=== PATIENT | female | born 1990 | race Caucasian/White ===

== ENCOUNTER → 2017-08-14 | Outpatient (CLI) | payer BC | LOC: MC.RAD 09:18 | DX: N63.11 Unspecified lump in the right breast, upper outer quadrant (principal) ==

== ENCOUNTER 2021-08-03 10:29 | Inpatient (IN) | payer BC ==
[~2021-08-03] VITALS: Ht 162.6 cm; Wt 83.2 kg
[2021-08-06] VITALS (40 sets, daily range): BP systolic 104–144; BP diastolic 58–86; PULSE 71–137; TEMP 97.5–98.7
[2021-08-06] MEDS ORDERED: PRENATAL MVI (06:48)
[2021-08-06 07:23] LABS: BASO % 0.3 % (0.0-2.0); EOS # 0.1 K/mm3 (0.0-0.7); EOS % 0.4 % (0.0-4.0); GRAN # 9.1 K/mm3 (1.4-6.5); HEMOGLOBIN 12.4 g/dl (12.5-16.0); LYMPH # 1.6 K/mm3 (1.2-3.4); LYMPH % 13.7 % (20.0-51.0); MEAN CELL VOLUME 89 fl (80.0-100.0); MEAN CORPUSCULAR HEMOGLOBIN 31 pg (27-31); MEAN CORPUSCULAR HGB CONC 34 g/dl (33.0-37.0); MONO # 0.9 K/mm3 (0.1-0.6); MONO % 7.2 % (1.7-9.3); PLATELET COUNT 208 K/mm3 (130-400); RED BLOOD COUNT 4.07 M/mm3 (4.10-5.30); REDCELL DISTRIBUTION WIDTH-CV 12.7 % (11.5-14.5)
[2021-08-06 07:26] LABS: HEMATOCRIT 36.2 % (37.0-47.0)
--- NOTE | 2021-08-06 08:13 | NUR ---
0620 - PATIENT AMBULATORY TO LDR6 WITH SPOUSE. PATIENT CHANGES INTO GOWN AND IS PLACED ON MONITOR AT 0628. PATIENT REPORTS INCREASED VAGINAL DISCHARGE/LEAKING OF FLUID. PATIENT ALSO REPORTS CONTRACTIONS STARTING THIS MORNING AT 0330. VSS. 0630 - CONSENTS REVIEWED AND SIGNED. 0635 - IV PLACED IN LEFT HAND. LABS DRAWN ORDERED. 0715 - LR INFUSING. AMNI TEST NEGATIVE. SVE 3.5/80/-3. 0719 - PITOCIN GTT INITIATED AT 2MILIUNITS/HR. PLAN OF CARE DISCUSSED. PATIENT RESTING. CALL LIGHT WITHIN REACH. CARE ONGOING.
--- NOTE | 2021-08-06 09:10 | NUR ---
0910 - MD HENNY AT BEDSIDE. SVE -/-2. PLAN OF CARE DISCUSSED. 0911 - AROM BY MD HENNY. PITOCIN GTT CONTINUES. VSS. CARE ONGOING.
--- NOTE | 2021-08-06 09:15 | NUR ---
0915 - PATIENT REQUESTING EPIDURAL. 0916 - ELVIA PADILLA NOTIFIED FOR ANESTHESIA. 0935 - LR BOLUS INITIATED. 0940 - ELVIA PADILLA AT BEDSIDE FOR EPIDURAL PLACEMENT. PLAN OF CARE DISCUSSED. 0944 - SINGLE SHOT GIVEN BY BOLT CUTTER. 0950 - PATIENT PLACED IN LEFT WEDGE POSITION. VSS. PITOCIN GTT CONTINUES. RN REMAINS AT BEDSIDE. CARE ONGOING.
--- NOTE | 2021-08-06 13:00 | NUR ---
EARLY AND LATE DECELS NOTED. PATIENT REPOSITIONED. CARE ONGOING.
--- NOTE | 2021-08-06 13:06 | NUR ---
1306 - PATIENT COMPLETE AND +2. MD HENNY ON UNIT AND NOTIFIED. 1316 - PATIENT INSTRUCTED ON PUSHING WITH CONTRACTIONS. PATIENT PUSHING WITH CONTRACTIONS. MOVES VERTEX WELL. 1320 - MD HENNY AT BEDSIDE TO EVALUATE PUSHING EFFORTS. INTERMITTENT LATE AND VARIABLE DECELS. PATIENT WEDGED LEFT. CONTINUES TO PUSH WITH CONTRACTIONS.
--- NOTE | 2021-08-06 13:54 | NUR ---
1354Dr. Roles at bedside for delivery. Patient continues to push with contractions with Dr. Valverde at bedside. 1357Spontaneous vaginal delivery of viable male infant. To mother's chest where dried and stimulated by nursery RN. Pitocin paused. 1359- Cord clamped x2 and cut by father of . Care of assumed by Rula Zavala RN. 1402 Spontaneous and intact delivery of placenta. Pitocin to 333ml/hr per protocol. Third degree perineal lac repaired by Dr. Valverde. Fundus firm, midline, and bleeding mininmal. Yudy care provided, pads changed, and ice pack to perineum. Plan of care and safety precautions reviewed. See doctor dictation, anesthesia record, and nurses notes.
--- NOTE | 2021-08-06 16:15 | NUR ---
Report to Maria Trotter LPN and Vijaya MATTHEWS, who assume care of pt.
--- NOTE | 2021-08-06 18:13 | NUR ---
PT HELPED TO BATHROOM, VOIDED 500CC PERICARE GIVEN WITH EDUCATION. PT HELPED TO WHEELCHAIR AND MOVED TO ROOM WITH ALL BELONGINGS AND AND BABY
[2021-08-07 00:30] VITALS: BP 113/79; PULSE 94; TEMP 97.4
[2021-08-07 05:45] VITALS: BP 110/79; PULSE 100; TEMP 97.9
[2021-08-07 08:00] VITALS: BP 108/71; PULSE 81; TEMP 98
--- NOTE | 2021-08-07 08:56 | NUR ---
Initial visit; Parents thanked Basket Filler for offering congratulations and God's blessings for the of their son. Basket Filler thanked family for choosing [place].
[2021-08-07 12:15] VITALS: BP 121/76; PULSE 104; TEMP 97.9
--- NOTE | 2021-08-07 14:30 | NUR ---
PARENTS EDUCATED ON BATH BY THIS RN. IN NURSERY WATCHING.
[2021-08-07 16:15] VITALS: BP 123/62; PULSE 101; TEMP 97.5
[2021-08-07 20:00] VITALS: BP 118/78; PULSE 82; TEMP 97.9
[2021-08-08 08:00] VITALS: BP 120/80; PULSE 106; TEMP 98.3
[2021-08-08] MEDS ORDERED: IBU800 M1 PO (09:28)
--- NOTE | 2021-08-08 13:43 | NUR ---
1045DISCHARGE INSTRUCTIONS REVIEWED WITH PATIENT AND PATIENT'S SPOUSE. BOTH VERBALIZED UNDERSTANDING. WILL NOTIFY THIS RN WHEN READY TO LEAVE. 1140ALL PERSONAL BELONGINGS GATHERED FROM PATIENT ROOM. PATIENT LEFT AMBULATORY AND IN NO APPARENT DISTRESS. PATIENT ACCOMPANIED BY SPOUSE AND THIS RN.
== END 2021-08-08 11:40 | disposition home or self-care (01) | DRG 768 ==
LOC: LDR 08-06 06:03 → OB 08-06 06:03 → LDR 08-06 10:28 → OB 08-06 18:06
PROVIDERS: ADMIT Obstetrics & Gynecology
PROC: 10E0XZZ Delivery of Products of Conception, External Approach (ICD-10-PCS; principal; 2021-08-06)
PROC: 0DQR0ZZ Repair Anal Sphincter, Open Approach (ICD-10-PCS; 2021-08-06)
PROC: 10907ZC Drainage of Amniotic Fluid, Therapeutic from Products of Conception, Via Natural or Artificial Opening (ICD-10-PCS; 2021-08-06)
PROC: 3E033VJ Introduction of Other Hormone into Peripheral Vein, Percutaneous Approach (ICD-10-PCS; 2021-08-06)
DX: O40.3XX0 Polyhydramnios, third trimester, not applicable or unspecified (principal); Z37.0 Single live birth; O70.20 Third degree perineal laceration during delivery, unspecified; O99.344 Other mental disorders complicating childbirth; F41.9 Anxiety disorder, unspecified; Z3A.40 40 weeks gestation of pregnancy; Z23 Encounter for immunization
CPT/HCPCS: J2590; J7120